=== PATIENT | male | born 1960 | race Caucasian/White ===

== ENCOUNTER 2021-12-10 23:05 | Inpatient (IN) | payer OTHER ==
[~2021-12-10] VITALS: Ht 175.3 cm; Wt 155.1 kg
[2021-12-10] MEDS ORDERED: HYDROCODONE/ACETAMINOPHEN 5/325MG TABLET PO ONE (23:15)
[2021-12-10 23:49] LABS: BASOPHILS % 0.7 % (0.0-2.0); HEMATOCRIT. 43.1 % (42.0-52.0); HEMOGLOBIN. 14.1 g/dL (14.0-18.0); LYMPHOCYTES % 13.6 % (20.0-50.0); MEAN CORPUSCULAR HEMOGLOBIN 28.3 pg (28.0-32.0); MEAN CORPUSCULAR VOLUME 86.3 fL (80.0-94.0); MEAN PLATELET VOLUME 8.9 fl (7.4-10.4); MONOCYTES % 5.8 % (2.0-8.0); NEUTROPHILS % 78.9 % (40.0-76.0); PLATELET 312 x1000/uL (130-400); RED BLOOD CELL COUNT 4.99 mill/uL (4.7-6.1); RED CELL DISTRIBUTION WIDTH 14.8 % (11.6-14.6)
[2021-12-10 23:52] LABS: CHLORIDE 108 mEq/L (98-107)
[2021-12-11] MEDS ORDERED: MORPHINE SULFATE 4 MG/ML CPJ (NOT FOR IM USE) IV STA (01:49)
[2021-12-11] MEDS ORDERED: KETOROLAC 30MG/ML VIAL IV STA (01:49)
[2021-12-11] MEDS ORDERED: ONDANSETRON HCL 4MG/2ML INJ IV STA (01:49)
[2021-12-11] MEDS ORDERED: SODIUM CHLORIDE 0.9% 1,000 ML IV ONE (02:00)
[2021-12-11 02:02] LABS: CLARITY URINE CLEAR (CLEAR); COLOR URINE YELLOW (YELLOW); KETONES URINE NEGATIVE (NEGATIVE); LEUKOCYTE ESTERASE URINE NEGATIVE (NEGATIVE); NITRITE URINE NEGATIVE (NEGATIVE); OCCULT BLOOD URINE TRACE (NEGATIVE); PH URINE 5.5 (4.5-8.0); PROTEIN URINE NEGATIVE (NEGATIVE); UROBILINOGEN URINE 0.2 E.U./dL (0.2-1.0)
[2021-12-11] MEDS ORDERED: CEFTRIAXONE 1 G PREMIX 50 ML IV ONE (04:15)
[2021-12-11] MEDS ORDERED: CEFTRIAXONE 1,000 MG in DEXTROSE 5% WATER 50 ML IV SCH (04:30)
[2021-12-11] MEDS ORDERED: MAGNESIUM/ALUMINUM HYDROXIDE/SIMETHICONE 30ML UDC PO PRN (07:00)
[2021-12-11] MEDS ORDERED: TRAMADOL 50MG TABLET PO PRN (07:00)
[2021-12-11] MEDS ORDERED: GUAIFENESIN 200MG/10ML SUGAR FREE UDC PO PRN (07:00)
[2021-12-11] MEDS ORDERED: ONDANSETRON HCL 4MG/2ML INJ IV PRN (07:00)
[2021-12-11] MEDS ORDERED: DOCUSATE SODIUM 100MG CAPSULE PO PRN (07:00)
[2021-12-11] MEDS ORDERED: ACETAMINOPHEN 325MG TABLET PO PRN (07:00)
[2021-12-11] MEDS ORDERED: CLONIDINE 0.1MG TABLET PO PRN (07:00)
[2021-12-11] MEDS ORDERED: ZOLPIDEM TARTRATE 5MG TABLET PO PRN (07:00)
[2021-12-11] MEDS ORDERED: ACETAMINOPHEN 650MG/20.3ML UDC GT PRN (07:00)
[2021-12-11] MEDS: SODIUM CHLORIDE 0.9% 1,000 ML IV SCH ×3 (08:00→20:20)
[2021-12-11 10:05] LABS: T4 FREE 1.1 ng/dL (0.76-1.46)
[2021-12-11 10:14] LABS: FOLIC ACID (FOLATE) SERUM 8.5 ng/mL (>5.38)
[2021-12-11] MEDS: LEVOFLOXACIN 500MG PREMIX 100 ML IV SCH (10:14)
[2021-12-11] MEDS: TAMSULOSIN HCL 0.4MG SR CAPSULE PO SCH ×2 (10:15→23:23)
[2021-12-11] MEDS: FAMOTIDINE 20MG TABLET PO SCH ×2 (10:15→23:21)
[2021-12-11] MEDS: METOPROLOL TARTRATE 25MG TABLET PO SCH ×2 (10:15→23:23)
[2021-12-11] MEDS: ENOXAPARIN 40MG/0.4ML SYR SUBCUT SCH ×2 (10:17→23:21)
[2021-12-11 14:35] LABS: *AMPHETAMINES SCREEN URINE NEGATIVE (NEGATIVE); *BARBITURATES SCREEN URINE NEGATIVE (NEGATIVE); *BENZODIAZEPINES SCREEN URINE NEGATIVE (NEGATIVE); *COCAINE SCREEN URINE NEGATIVE (NEGATIVE); CANNABINOID URINE SCREEN NEGATIVE (NEGATIVE); METHADONE URINE SCREEN NEGATIVE (NEGATIVE); OPIATES URINE SCREEN PRESUMTIVE POSITIVE (NEGATIVE); PHENCYCLIDINE URINE SCREEN NEGATIVE (NEGATIVE)
[2021-12-11] MEDS: KETOROLAC 30MG/ML VIAL IV PRN (18:48)
[2021-12-11 22:37] VITALS: BP 128/79
[2021-12-11 22:45] VITALS: BP 128/79
[2021-12-12] MEDS: SODIUM CHLORIDE 0.9% 1,000 ML IV SCH ×2 (03:00→09:19)
[2021-12-12] MEDS ORDERED: METF-874 PO (03:02)
[2021-12-12] MEDS ORDERED: FURO20TA4 PO (03:03)
[2021-12-12] MEDS ORDERED: BENA10TA74 PO (03:04)
[2021-12-12] MEDS ORDERED: ATOR40TA70 PO (03:04)
[2021-12-12 04:00] VITALS: BP 192/69
[2021-12-12] MEDS: NITROGLYCERIN 0.4MG TABLET SL SL PRN ×2 (04:01→04:09)
[2021-12-12] MEDS: IPRATROPIUM/ALBUTEROL 0.5-3(2.5)MG/3ML NEB NEB PRN ×2 (04:20→23:41)
[2021-12-12] MEDS: KETOROLAC 30MG/ML VIAL IV PRN (04:36)
[2021-12-12 05:00] VITALS: BP 122/59
[2021-12-12 08:00] VITALS: BP 110/68
[2021-12-12 08:06] LABS: HEMATOCRIT. 37.7 % (42.0-52.0); HEMOGLOBIN. 12.7 g/dL (14.0-18.0); MEAN CORPUSCULAR HEMOGLOBIN 29.1 pg (28.0-32.0); MEAN CORPUSCULAR VOLUME 86.4 fL (80.0-94.0); MEAN PLATELET VOLUME 9.6 fl (7.4-10.4); PLATELET 203 x1000/uL (130-400); RED BLOOD CELL COUNT 4.36 mill/uL (4.7-6.1); RED CELL DISTRIBUTION WIDTH 15.1 % (11.6-14.6)
[2021-12-12 08:08] LABS: CHLORIDE 106 mEq/L (98-107)
[2021-12-12 08:20] LABS: PHOSPHORUS 2.5 mg/dL (2.5-4.9)
[2021-12-12] MEDS: LEVOFLOXACIN 500MG PREMIX 100 ML IV SCH (09:17)
[2021-12-12] MEDS: ENOXAPARIN 40MG/0.4ML SYR SUBCUT SCH ×2 (09:18→21:00)
[2021-12-12] MEDS: METOPROLOL TARTRATE 25MG TABLET PO SCH ×2 (09:18→21:48)
[2021-12-12] MEDS: FAMOTIDINE 20MG TABLET PO SCH ×2 (09:18→21:48)
[2021-12-12] MEDS: TAMSULOSIN HCL 0.4MG SR CAPSULE PO SCH ×2 (09:18→21:48)
[2021-12-12] MEDS ORDERED: NALOXONE HCL 0.4MG/ML VIAL IV PRN (11:45)
[2021-12-12] MEDS ORDERED: DEXTROSE 50% WATER 50ML SYRINGE IV PRN (11:45)
[2021-12-12 12:00] VITALS: BP 130/70
[2021-12-12] MEDS ORDERED: PNEUMOCOCCAL 23-VAL P-SAC VAC 0.5 ML IM ONE (12:00)
[2021-12-12] MEDS: BLOOD SUGAR DIAGNOSTIC STRIP TEST SCH ×3 (12:09→21:50)
[2021-12-12] MEDS: INSULIN LISPRO 100 UNITS/ML SUBCUT SCH ×3 (12:09→21:00)
[2021-12-12] MEDS: KETOROLAC 30MG/ML VIAL IV SCH ×3 (14:26→23:41)
[2021-12-12 16:00] VITALS: BP 152/87
[2021-12-12 17:07] LABS: PLATELET ESTIMATE NORMAL
[2021-12-12 20:00] VITALS: BP 152/85
[2021-12-13] VITALS: BP 163/101
[2021-12-13 02:00] VITALS: BP 143/72
[2021-12-13 04:00] VITALS: BP 142/60
[2021-12-13] MEDS: KETOROLAC 30MG/ML VIAL IV SCH ×3 (06:18→18:09)
[2021-12-13] MEDS: INSULIN LISPRO 100 UNITS/ML SUBCUT SCH ×4 (06:26→21:00)
[2021-12-13] MEDS: BLOOD SUGAR DIAGNOSTIC STRIP TEST SCH ×4 (06:26→21:11)
[2021-12-13 08:00] VITALS: BP 150/84
[2021-12-13] MEDS: ENOXAPARIN 40MG/0.4ML SYR SUBCUT SCH ×2 (09:00→20:49)
[2021-12-13] MEDS: LEVOFLOXACIN 500MG PREMIX 100 ML IV SCH (09:44)
[2021-12-13] MEDS: FAMOTIDINE 20MG TABLET PO SCH ×2 (09:45→21:09)
[2021-12-13] MEDS: TAMSULOSIN HCL 0.4MG SR CAPSULE PO SCH ×2 (09:46→21:09)
[2021-12-13] MEDS: METOPROLOL TARTRATE 25MG TABLET PO SCH ×2 (09:46→21:09)
[2021-12-13 10:05] LABS: BG BASE EXCESS -6.1 mmol/L (-2.0-2.0); BG CARBOXYHEMOGLOBIN 0.3 % (0.5-1.5); BG DEOXYHEMOGLOBIN 7.5 % (0.0-5.0); BG FRACTION INSPIRED OXYGEN 21; BG HCO3 ACT 16.4 mmol/L (22.0-26.0); BG METHEMOGLOBIN 0.3 % (0.0-1.5); BG OXYGEN SATURATION 92.5 % (92.0-98.5); BG OXYHEMOGLOBIN 91.9 % (94.0-97.0); BG PCO2 24.5 mmHg (35.0-45.0); BG PH 7.443 (7.350-7.450); BG PO2 62.3 mmHg (75.0-100.0); BG SAMPLE SITE RIGHT RADIAL; BG TOTAL HEMOGLOBIN 12.4 g/dL (12.0-18.0); BG VENT MODE ROOM AIR
[2021-12-13 12:00] VITALS: BP 174/79
[2021-12-13] MEDS ORDERED: FUROSEMIDE 40MG/4ML VIAL IVP NR (13:45)
[2021-12-13] MEDS: AMLODIPINE 5MG TABLET PO SCH (14:47)
[2021-12-13 20:00] VITALS: BP 138/75
[2021-12-14] VITALS: BP 152/77
[2021-12-14] MEDS: KETOROLAC 30MG/ML VIAL IV SCH ×2 (00:30→05:06)
[2021-12-14 04:00] VITALS: BP 119/56
[2021-12-14] MEDS: INSULIN LISPRO 100 UNITS/ML SUBCUT SCH (06:13)
[2021-12-14] MEDS: BLOOD SUGAR DIAGNOSTIC STRIP TEST SCH (06:13)
[2021-12-14] MEDS ORDERED: FUROSEMIDE 40MG/4ML VIAL IVP SCH (08:45)
[2021-12-14] MEDS: AMLODIPINE 5MG TABLET PO SCH (08:56)
[2021-12-14] MEDS: LEVOFLOXACIN 500MG PREMIX 100 ML IV SCH (08:56)
[2021-12-14] MEDS: TAMSULOSIN HCL 0.4MG SR CAPSULE PO SCH (08:57)
[2021-12-14] MEDS: METOPROLOL TARTRATE 25MG TABLET PO SCH (08:57)
[2021-12-14] MEDS: FAMOTIDINE 20MG TABLET PO SCH (08:57)
[2021-12-14] MEDS: ENOXAPARIN 40MG/0.4ML SYR SUBCUT SCH (08:58)
[2021-12-14 10:08] LABS: BG BASE EXCESS -0.4 mmol/L (-2.0-2.0); BG CARBOXYHEMOGLOBIN 0.8 % (0.5-1.5); BG DEOXYHEMOGLOBIN 3.1 % (0.0-5.0); BG FRACTION INSPIRED OXYGEN 21; BG HCO3 ACT 21.4 mmol/L (22.0-26.0); BG METHEMOGLOBIN 0.2 % (0.0-1.5); BG OXYGEN SATURATION 96.9 % (92.0-98.5); BG OXYHEMOGLOBIN 95.9 % (94.0-97.0); BG PCO2 27.6 mmHg (35.0-45.0); BG PH 7.507 (7.350-7.450); BG PO2 83.8 mmHg (75.0-100.0); BG SAMPLE SITE RIGHT RADIAL; BG TOTAL HEMOGLOBIN 13.8 g/dL (12.0-18.0); BG VENT MODE ROOM AIR
[2021-12-14 12:14] VITALS: BP 142/80
== END 2021-12-14 13:20 | disposition home or self-care (01) | DRG 690 ==
LOC: ER 23:05 → MICUSO 12-11 04:56 → 6EST 12-11 20:31
PROVIDERS: ADMIT Internal Medicine; ATTEND Internal Medicine
PROC: 5A09357 Assistance with Respiratory Ventilation, Less than 24 Consecutive Hours, Continuous Positive Airway Pressure (ICD-10-PCS; principal; 2021-12-12)
PROC: 5A09357 Assistance with Respiratory Ventilation, Less than 24 Consecutive Hours, Continuous Positive Airway Pressure (ICD-10-PCS; 2021-12-13)
DX: N13.6 Pyonephrosis (principal); Z68.43 Body mass index [BMI] 50.0-59.9, adult; E11.9 Type 2 diabetes mellitus without complications; E78.00 Pure hypercholesterolemia, unspecified; Z82.49 Family history of ischemic heart disease and other diseases of the circulatory system; I16.0 Hypertensive urgency; I27.20 Pulmonary hypertension, unspecified; N17.9 Acute kidney failure, unspecified; I11.0 Hypertensive heart disease with heart failure; I50.9 Heart failure, unspecified; E66.01 Morbid (severe) obesity due to excess calories; Z20.822 Contact with and (suspected) exposure to COVID-19; E78.5 Hyperlipidemia, unspecified; G47.33 Obstructive sleep apnea (adult) (pediatric); Z79.4 Long term (current) use of insulin
CPT/HCPCS: 36415; 36600; 71045; 74176; 76770; 80053; 80061; 80305; 81003; 82375; 82607; 82746; 82805; 82962; 83036; 83540; 83550; 83735; 83880; 84100; 84439; 84443; 85025; 87077; 87186; 87426; 90732; 93005; 93306; 93970; 94640; 94660; 97161; 97166; 97530; 99285; J0696; J1650; J1885; J1940; J1956; J2270; J2405; J7030; J7060